=== PATIENT | male | born 2000 | race Two or more races ===

== ENCOUNTER 2021-07-28 07:28 | Emergency (ER) | payer MEDICAID, OTHER ==
[~2021-07-28] VITALS: Ht 177.8 cm; Wt 108.9 kg
[2021-07-28] MEDS ORDERED: THIAMINE 100mg/ml INJ (200mg/2ml VIAL) IV ONE (09:00)
[2021-07-28] MEDS ORDERED: SODIUM CHLORIDE 0.9% 1,000 ML IV ONE ×2 (09:00)
[2021-07-28] MEDS ORDERED: HYDROmorphone HCL 2 MG/ML VL IV ONE (11:15)
[2021-07-28] MEDS ORDERED: IBU600T PO (11:40)
[2021-07-28] MEDS ORDERED: ETOMIDATE (2MG/ML) 20ML VIAL IV ONE (13:30)
[2021-07-28 14:40] VITALS: BP 104/30
[2021-07-28] MEDS ORDERED: SODIUM CHLORIDE 0.9% 500 ML IV ONE (15:45)
== END 2021-07-28 17:25 | disposition home or self-care (01) ==
LOC: ER 07:28 → EDBD 07:28 → ER 17:25
DX: S82.62XA Displaced fracture of lateral malleolus of left fibula, initial encounter for closed fracture (principal); Z91.013 Allergy to seafood; X50.1XXA Overexertion from prolonged static or awkward postures, initial encounter; Y93.89 Activity, other specified; Y92.89 Other specified places as the place of occurrence of the external cause; Y99.8 Other external cause status
CPT/HCPCS: 27788; 36415; 70450; 73600; 73610; 80320; 96361; 96374; 96375; 99285; J1170; J3411; J7030